=== PATIENT | male | born 1985 | race Caucasian/White ===

== ENCOUNTER 2017-07-05 05:09 | Emergency (ER) | payer OTHER, MEDICAID ==
[~2017-07-05] VITALS: Ht 170.2 cm; Wt 66.0 kg
[2017-07-05 05:30] VITALS: BP 123/73
[2017-07-05] MEDS ORDERED: SODIUM CHLORIDE 0.9% 1,000 ML IV ONE (07:00)
== END 2017-07-05 06:57 | disposition left against medical advice (07) ==
LOC: ER 05:09
DX: T78.8XXA Other adverse effects, not elsewhere classified, initial encounter (principal); F12.90 Cannabis use, unspecified, uncomplicated; R56.9 Unspecified convulsions; F17.200 Nicotine dependence, unspecified, uncomplicated; R53.1 Weakness; X58.XXXA Exposure to other specified factors, initial encounter; Z98.890 Other specified postprocedural states
CPT/HCPCS: 99284; Z7610; J7030